=== PATIENT | female | born 1930 | race Caucasian/White ===

== ENCOUNTER → 2016-12-22 | Outpatient (CLI) | payer MEDICARE, BC ==
[~2016-12-22] MED LIST: ALTACE PO; ASPIRIN81 MG PO; CELEBREX PO; CELEBREX100 MG PO; FISH OIL 1,0001 CAP PO; GINKGO BILOBA120 M2 PO; LASIX PO; LASIX20 MG PO; MIACALCIN4 ML; NEXIUM PO; OMEGA; OMEGA-3 FISH1200 MG PO; PREMARIN PO; PRILOSEC20 M1 PO; SYNTHROID PO; TIROSINT50 MCG PO; VICODIN 5/500 T1 TAB PO; VIT E PO
--- NOTE | ~2016-12-22 | CT71 ---
[facility] A Service of [facility] RADIOLOGY TEXT RESULTS PATIENT: VIJAY CORONA LOCATION: [facility] : 31 UNIT #: [id number] AGE: [address]: Messi Quiroz MD SEX: F ORDER DR: [id number] [facility] [address] [place], [place] [address] [id number] O MR#: [id number] Acc #: [id number] NAME: VIJAY CORONA : 1930 SEX: F STUDY DATE/TIME: 12/22/2016 15:20 UNIT: [facility] ROOM: STUDY DESCRIPTION: CT Head Wo Contrast Attending Physician: Messi Quiroz M.D. Referring Physician: Messi Quiroz M.D. Ordering Physician: Messi Quiroz M.D. Primary Care Physician: Messi Quiroz M.D. MEDICAL IMAGING REPORT This report is preliminary unless electronic signature is present EXAM Head CT without contrast. HISTORY Confusion and headache intermittently for the past several months. TECHNIQUE Axial images were obtained without contrast and compared with 03/17/2014. This CT exam was performed with one or more of the following radiation dose reduction techniques: automatic exposure control, adjustment of mA and/or kV according to patient size, and iterative reconstruction. FINDINGS Mild atrophy is noted. There is no evidence of mass lesion, hemorrhage or edema. No midline shift is seen. Extraaxial structures are unremarkable. IMPRESSION Atrophy. No changes seen. Dictated by... Teo Vigil M.D. THIS IS AN ELECTRONICALLY VERIFIED REPORT Teo Vigil M.D. at 12/28/2016 7:10 AM CURTIS/richard TD: 12/22/2016 23:12 JOB #: [id number] MEDICAL IMAGING REPORT Page 1 of 1 COPY
== END | disposition home or self-care (01) ==
LOC: CCAT 15:00
DX: R41.0 Disorientation, unspecified (principal); G31.9 Degenerative disease of nervous system, unspecified
CPT/HCPCS: 70450

== ENCOUNTER → 2016-12-30 | Outpatient (CLI) | payer MEDICARE, BC ==
--- NOTE | ~2016-12-30 | CR213 ---
[facility] A Service of [facility] & [facility] RADIOLOGY TEXT RESULTS PATIENT: VIJAY CORONA LOCATION: [facility] : 31 UNIT #: [id number] AGE: [address]: Messi Quiroz MD SEX: F ORDER DR: [id number] [facility] [address] [place], [place] [address] [id number] O MR#: [id number] Acc #: [id number] NAME: VIJAY CORONA : 1930 SEX: F STUDY DATE/TIME: 12/30/2016 13:01 UNIT: [facility] ROOM: STUDY DESCRIPTION: CR Ribs Unilateral 2 View Rt Attending Physician: Messi Quiroz M.D. Referring Physician: Messi Quiroz M.D. Ordering Physician: Messi Quiroz M.D. Primary Care Physician: Messi Quiroz M.D. MEDICAL IMAGING REPORT This report is preliminary unless electronic signature is present EXAM Right rib series, 2 views. INDICATIONS Right rib pain for 2 days after falling on porch. COMPARISON No comparisons. FINDINGS I do question a nondisplaced fracture involving the posterolateral aspect of the ninth rib. Correlate with location of the patient's symptoms. There are granulomatous calcifications in the lungs. No appreciable pneumothorax. IMPRESSION Questionable nondisplaced fracture involving the posterolateral aspect of the ninth rib. Correlate clinically with location of the patient's pain. Dictated by... Aditya Santana M.D. THIS IS AN ELECTRONICALLY VERIFIED REPORT Aditya Santana M.D. at 01/04/2017 1:32 PM EPIFANIO/richard TD: 12/31/2016 03:42 JOB #: [id number] MEDICAL IMAGING REPORT Page 1 of 1 COPY
--- NOTE | ~2016-12-30 | CR151 ---
[facility] A Service of [facility] RADIOLOGY TEXT RESULTS PATIENT: VIJAY CORONA LOCATION: [facility] : 31 UNIT #: [id number] AGE: [address]: Mesis Quiroz MD SEX: F ORDER DR: [id number] [facility] [address] [place], [place] [address] [id number] O MR#: [id number] Acc #: [id number] NAME: VIJAY CORONA : 1930 SEX: F STUDY DATE/TIME: 12/30/2016 12:56 UNIT: [facility] ROOM: STUDY DESCRIPTION: CR Hip Min 2 Views Rt Attending Physician: Messi Quiroz M.D. Referring Physician: Messi Quiroz M.D. Ordering Physician: Messi Quiroz M.D. Primary Care Physician: Messi Quiroz M.D. MEDICAL IMAGING REPORT This report is preliminary unless electronic signature is present EXAM Right hip, 2 views. INDICATION Minus right hip pain for 2 days after falling. COMPARISON Comparison with 03/17/2014. FINDINGS Osteopenia. No evidence for acute fracture. Previous left hip arthroplasty. Degenerative change of the lumbar spine. IMPRESSION Osteopenia. No evidence for fracture. Dictated by... Aditya Santana M.D. THIS IS AN ELECTRONICALLY VERIFIED REPORT Aditya Santana M.D. at 01/04/2017 1:32 PM EPIFANIO/salvatore TD: 12/31/2016 03:41 JOB #: [id number] MEDICAL IMAGING REPORT Page 1 of 1 COPY
== END | disposition home or self-care (01) ==
LOC: CRAD 12:23
DX: M25.551 Pain in right hip (principal); R07.81 Pleurodynia; M85.851 Other specified disorders of bone density and structure, right thigh
CPT/HCPCS: 71100; 73502

== ENCOUNTER 2017-01-31 10:53 | Emergency (ER) | payer MEDICARE, BC ==
[~2017-01-31] VITALS: Ht 157.5 cm; Wt 53.5 kg
--- NOTE | ~2017-01-31 | CR230 ---
[facility] A Service of [facility] & [facility] RADIOLOGY TEXT RESULTS PATIENT: VIJAY CORONA V LOCATION: [facility] : 31 UNIT #: [id number] AGE: [address]: Salvador Chirinos MD SEX: F ORDER DR: [id number] [facility] [address] [place], [place] [address] [id number] E MR#: [id number] Acc #: [id number] NAME: VIJAY CORONA V. : 1930 SEX: F STUDY DATE/TIME: 01/31/2017 11:45 UNIT: [facility] ROOM: STUDY DESCRIPTION: CR Shoulder Min 2 View Rt Attending Physician: Salvador Chirinos M.D. Ordering Physician: Salvador Chirinos M.D. Primary Care Physician: Messi Quiroz M.D. MEDICAL IMAGING REPORT This report is preliminary unless electronic signature is present EXAM Right shoulder 3 views, 01/31/2017 11:45 hours HISTORY Patient fell this morning complaining of right shoulder pain. COMPARISON Right rib films, 12/30/2016 FINDINGS AP views in internal-external rotation and a scapula Y-view suggest osteopenia. There is no acute shoulder fracture or dislocation. There is spurring at the acromioclavicular joint unchanged. IMPRESSION Osteopenia with stable degenerative changes at the AC joint. No fracture or dislocation. Dictated by... Valencia Armenta M.D. THIS IS AN ELECTRONICALLY VERIFIED REPORT Valencia Armenta M.D. at 01/31/2017 4:16 PM Consuelo TD: 01/31/2017 14:54 JOB #: [id number] MEDICAL IMAGING REPORT Page 1 of 1 COPY
--- NOTE | ~2017-01-31 | CR151 ---
[facility] A Service of [facility] & [facility] RADIOLOGY TEXT RESULTS PATIENT: VIJAY CORONA V LOCATION: [facility] : 31 UNIT #: [id number] AGE: [address]: Salvador Chirinos MD SEX: F ORDER DR: [id number] [facility] [address] [place], [place] [address] [id number] E MR#: [id number] Acc #: [id number] NAME: VIJAY CORONA V. : 1930 SEX: F STUDY DATE/TIME: 01/31/2017 11:44 UNIT: [facility] ROOM: STUDY DESCRIPTION: CR Hip Min 2 Views Rt Attending Physician: Salvador Chirinos M.D. Ordering Physician: Salvador Chirinos M.D. Primary Care Physician: Messi Quiroz M.D. MEDICAL IMAGING REPORT This report is preliminary unless electronic signature is present EXAM Right hip, 01/31/2017, 1144 hours. CLINICAL HISTORY 86-year-old woman who fell this morning complaining of right hip pain. COMPARISON 01/26/2017 FINDINGS AP pelvis and frog lateral view right hip demonstrates stable hardware at the left hip. There is osteopenia. No acute hip or pelvic fracture seen. Stable sclerotic change at the left pubic symphysis. Stable degenerative changes at the lumbosacral junction. IMPRESSION Osteopenia with no acute right hip fracture. Hardware stable at the left hip. Stable degenerative changes at the lumbosacral junction. Dictated by... Valencia Armenta M.D. THIS IS AN ELECTRONICALLY VERIFIED REPORT Valencia Armenta M.D. at 01/31/2017 4:16 PM LEON/salvatore TD: 01/31/2017 14:51 JOB #: [id number] MEDICAL IMAGING REPORT Page 1 of 1 COPY
--- NOTE | ~2017-01-31 | CT71 ---
[facility] A Service of [facility] RADIOLOGY TEXT RESULTS PATIENT: VIJAY CORONA V LOCATION: [facility] : 31 UNIT #: [id number] AGE: [address]: Salvador Chirinos MD SEX: F ORDER DR: [id number] [facility] [address] [place] [address] [place], [place] [address] [id number] E MR#: [id number] Acc #: [id number] NAME: VIJAY CORONA V. : 1930 SEX: F STUDY DATE/TIME: 01/31/2017 12:03 UNIT: [facility] ROOM: STUDY DESCRIPTION: CT Head Wo Contrast Attending Physician: Salvador Chirinos M.D. Ordering Physician: Salvador Chirinos M.D. Primary Care Physician: Messi Quiroz M.D. MEDICAL IMAGING REPORT This report is preliminary unless electronic signature is present EXAM CT scan of the head without contrast HISTORY Fall this morning with trauma to head and headache since fall. COMPARISON 12/22/2016. TECHNIQUE This CT exam was performed with one or more of the following radiation dose reduction techniques: automatic control, adjustment of mA and/or kV according to patient size, and iterative reconstruction. FINDINGS Axial noncontrast images were obtained from the skull base to the vertex. Ventricular size and configuration are normal. There is no evidence of acute infarct or hemorrhage. There are no extra-axial fluid collections. No mass lesion or mass effect is seen. There are no skull fractures. IMPRESSION Normal noncontrast head CT. Dictated by... Juan Miguel Albright M.D. THIS IS AN ELECTRONICALLY VERIFIED REPORT Juan Miguel Albright M.D. at 01/31/2017 3:38 PM FEL/rnr [facility] A Service of [facility] RADIOLOGY TEXT RESULTS PATIENT: VIJAY CORONA V LOCATION: [facility] : 31 UNIT #: [id number] AGE: [address]: Salvador Chirinos MD SEX: F ORDER DR: TD: 01/31/2017 15:21 JOB #: [id number] MEDICAL IMAGING REPORT Page 1 of 1 COPY
[2017-01-31 12:01] LABS: HEMATOCRIT 35.6 % (35.0-45.0); MEAN CELL VOLUME 91.9 FL (83-96); MEAN CORPUSCULAR HEMOGLOBIN 31.1 PG (28-34); MEAN CORPUSCULAR HGB CONC 33.8 g/dL (30-36); MEAN PLATELET VOLUME 7.4 FL (6.5-11.5); RED BLOOD COUNT 3.88 X10e (3.90-5.30); RED CELL DISTRIBUTION WIDTH 13.8 % (11.0-15.5); WHITE BLOOD COUNT 6.8 X10e3 (4.0-10.5)
[2017-01-31 12:14] LABS: PROTHROMBIN TIME (PATIENT) 10.7 SECONDS (10.0-11.7)
[2017-01-31 12:16] LABS: POC - TROPONIN <0.05 ng/mL (<=0.05)
== END 2017-01-31 13:51 | disposition home or self-care (01) ==
LOC: CED 10:53
PROVIDERS: Emergency Medicine
DX: S40.011A Contusion of right shoulder, initial encounter (principal); I10 Essential (primary) hypertension; Z88.8 Allergy status to other drugs, medicaments and biological substances; W01.0XXA Fall on same level from slipping, tripping and stumbling without subsequent striking against object, initial encounter; Y92.009 Unspecified place in unspecified non-institutional (private) residence as the place of occurrence of the external cause
CPT/HCPCS: 70450; 73030; 73502; 73700; 82553; 84484; 85027; 85610; 99284